=== PATIENT | male | born 1980 | race Caucasian/White ===

== ENCOUNTER 2018-03-25 08:05 | Inpatient (IN) | payer BC ==
[~2018-03-25] VITALS: Ht 185.4 cm; Wt 163.3 kg
[~2018-03-25 08:05] MED LIST: BACTRIM DS TAB1 EACH PO; CLEOCIN HCL150 MG PO; HYDROCODONE-AP1 EAC6 PO; IBUPROFEN 800800 M1 PO; KEFLEX500 MG PO
[2018-03-25 08:11] VITALS: BP 182/104
[2018-03-25 08:44] LABS: ABSOLUTE BASOPHILS 0.1 thou/uL (0.0-0.2); ABSOLUTE EOSINOPHILS 0.3 thou/uL (0.0-0.7); ABSOLUTE LYMPHOCYTES 1.8 thou/uL (0.8-5.3); ABSOLUTE MONOCYTES 0.6 thou/uL (0.0-1.2); ABSOLUTE NEUTROPHILS 4.8 thou/uL (1.6-8.1); EOSINOPHILS 3.8 %; HEMATOCRIT 42.8 % (42.0-52.0); HEMOGLOBIN 14.5 gm/dL (14.0-18.0); LYMPHOCYTES 23.9 %; MCH 28.3 pg (26.0-34.0); MCV 83.3 fL (80.0-100.0); MONOCYTES 7.8 %; MPV 8.9 fl. (7.2-11.1); NUCLEATED RBCS 0 /100WBC; PLATELET COUNT* 316 thou/uL (150-400); POLYS 63.5 %; RBC 5.13 mil/uL (4.50-6.00); RDW-CV 14.3 % (10.5-14.5); WBC 7.6 thou/uL (4.0-11.0)
--- NOTE | 2018-03-25 08:46 | NUR ---
PT GIVEN WARM BLANKET PER REQUEST
[2018-03-25 08:52] LABS: CALCIUM 8.5 mg/dL (8.5-10.1); POTASSIUM 3.5 mmol/L (3.5-5.1)
[2018-03-25 09:02] LABS: ALBUMIN 3.8 g/dL (3.4-5.0); TOTAL BILIRUBIN 0.3 mg/dL (<0.1-1.0); TOTAL PROTEIN 7.9 g/dL (6.4-8.2)
[2018-03-25 10:12] VITALS: BP 133/69
[2018-03-25 10:41] VITALS: BP 151/77
--- NOTE | 2018-03-25 17:02 | NUR ---
PATIENT ADMITTED TO ROOM 103 THIS AM. ALERT AND ORIENTED X 4. PATIENT RATING PAIN A 6/10 BUT HAS BEEN SLEEPING ALMOST ALL OF SHIFT. PATIENT STATES HE WORKS NIGHTS. IV ABX INFUSING ORDERED. BLE'S ELEVATED. PHOTOS TAKEN PER PROTOCOL OF BLE'S. ORIENTED TO CALL LIGHT. CALL LIGHT WITHIN REACH, WILL CONTINUE TO MONITOR.
[2018-03-25 19:45] VITALS: BP 122/77
--- NOTE | 2018-03-25 21:20 | NUR ---
PATIENT MOVED TO HALLWAY DURING TORNADO WARNING PER HOSPITAL POLICY.
--- NOTE | 2018-03-26 04:47 | NUR ---
PATIENT REMAINS ALERT AND ORIENTED X4 THROUGHOUT SHIFT. VITAL SIGNS STABLE ON ROOM AIR. IV PATENT IN THE RIGHT WRIST SALINE LOCKED. TRANSFERS AD MANPREET TO THE RESTROOM. FEET HAVE BEEN ON PILLOWS THROUGHOUT NIGHT. DENIES PAIN OR NAUSEA. MEDICATIONS GIVEN PER ORDERS. HOURLY ROUNDING COMPLETE. TOLERATING REGULAR DIET. RESTING COMFORTABLY THROUGHOUT THE NIGHT. BED IN LOW POSITION. CALL LIGHT WITHIN REACH. NURSING WILL CONTINUE TO MONITOR.
[2018-03-26 04:52] LABS: ABSOLUTE BASOPHILS 0.1 thou/uL (0.0-0.2); ABSOLUTE EOSINOPHILS 0.3 thou/uL (0.0-0.7); ABSOLUTE LYMPHOCYTES 2.3 thou/uL (0.8-5.3); ABSOLUTE MONOCYTES 0.7 thou/uL (0.0-1.2); EOSINOPHILS 4.4 %; HEMATOCRIT 38.9 % (42.0-52.0); HEMOGLOBIN 13.1 gm/dL (14.0-18.0); LYMPHOCYTES 31.3 %; MCH 28.3 pg (26.0-34.0); MCHC 33.7 g/dL (28.0-37.0); MONOCYTES 8.8 %; NUCLEATED RBCS 0 /100WBC; PLATELET COUNT* 288 thou/uL (150-400); POLYS 54.5 %; RBC 4.64 mil/uL (4.50-6.00); RDW-CV 14.1 % (10.5-14.5); WBC 7.4 thou/uL (4.0-11.0)
[2018-03-26 05:13] LABS: CALCIUM 8.2 mg/dL (8.5-10.1); CREATININE 0.9 mg/dL (0.6-1.3)
[2018-03-26 08:00] VITALS: BP 151/78
--- NOTE | 2018-03-26 09:32 | EKG ---
[place] [address] ELECTROCARDIOGRAM REPORT Name: KAISER KERR Room: [address] IN [facility]#: [id number] Admission: 03/25/18 Attend Phys: Nilda Jacobo Discharge: Date of : 84 Report #: [id number] THIS REPORT FOR: //name// [facility] ED Test Date: 2018-03-25 Test Time: 08:36:33 Pat Name: KAISER KERR Department: Room: Gender: Admitting Supervisor: : [id number] Requested By: Heladio Krishnamurthy Order Number: [id number] MD: Jerson Krishna Measurements Intervals Seney Rate: 98 P: 44 ME: 142 QRS: 6 QRSD: 112 T: 26 QT: 369 QTc: 472 Interpretive Statements Sinus rhythm Atrial premature complex Incomplete right bundle branch block Borderline prolonged QT interval No previous ECG available for comparison Electronically Signed On 03-26-2018 9:32:27 CDT by Jerson Krishna [email or web address] <ELECTRONICALLY SIGNED> By: Jerson Krishna MD, [facility] 03/26/18 0932 Jerson Krishna MD, [facility] /EPI
--- NOTE | 2018-03-26 12:15 | NUR ---
WOUND NURSE: PATIENT SEEN TO ADDRESS PERIPHERAL EDEMA IN BILATERAL LOWER EXTREMITIES. PATIENT PRESENTS WITH REDNSS AND WARMTH. THERE ARE NO OPEN WOUND, BUT RANDOM SUPERFICIAL SCRATCHES ON LEGS. PT AND DP PULSES ARE NORMAL BILATERALLY. PATIENT REPORTS PAIN TO TOUCH TO MEDIAL DISTAL LOWER LEGS ABOVE THE MALLEOLUS. GIRTH MEASUREMENTS ARE FOLLOWS: FOOT: 27.5 (RT), 28.5 (LT); ANKLE: 26.0 (RT), 29.5 (LT); 49.5 (RT), 44.5 (LT). THERE IS 2+ PITTING EDEMA IN BLE. APPLIED SINGLE LAYER SIZE F TUBIGRIPS TO PROVIDE APPROX MEDIUM COMPRESSION. PATIENT REPORTS HE WORKS ON HIS FEET ALL DAY AT [employer] AND USUALLY HAS SWELLING ISSUES IN HIS LOWER LEGS BY THE END OF HIS WORK DAY. PATIENT ALSO HAS SOME MILD LIGHT BROWNISH HYPERPIGMENTATION ON DISTAL FEET AND LOWER LEGS. SPOKE WITH DR. PIRES WHO APPROVED VASCULAR CONSULT TO EVALUATE. PATIENT ALSO REPORTING THAT ISSUES WITH CELLULITIS IN HIS LEGS HAS BEEN AN ANNUAL ISSUE OVER THE PAST 5 YEARS. DISCUSSED WITH PATIENT THE IMPORTANCE OF USING MOISTURIZER TO LEGS TO PROTECT SKIN ELASTICITY AND HELP PREVENT FUTURE COMPLICATING FACTORS AND THE POSSIBLE NEED FOR COMPRESSION. PATIENT STATED HE UNDERSTOOD.
--- NOTE | 2018-03-26 12:33 | NUR ---
PT.ALERT AND ORIENTED. STATED HE IS INDEPENDENT. WORKS [employer]. GETS THIS CELLULITIS ABOUT EVERY YEAR AROUND THIS TIME. HIS SIG.OTHER CAN HELP HIM NEEDED. NO HX OF HOME HEALTH OR DME. CM WILL FOLLOW FOR ANY DISCHARGE NEEDS.
[2018-03-26 15:56] VITALS: BP 145/71
--- NOTE | 2018-03-26 17:52 | NUR ---
ALERT AND ORIENTED X4. UP AD MANPREET IN ROOM. IV IS PATENT AND SALINE LOCKED. DENIES NEED FOR PAIN MEDICATION. DENIES NAUSEA. TOLERATING DIET. PATIENT HAS SLEPT MOST OF THE SHIFT. VSS ON ROOM AIR. HOURLY ROUNDS HAVE BEEN MAINTAINED THROUGHOUT SHIFT. CALL LIGHT IS WITHIN REACH. NURSING WILL CONTINUE TO MONITOR.
[2018-03-26 20:05] VITALS: BP 138/78
[2018-03-27 04:23] LABS: ABSOLUTE BASOPHILS 0.1 thou/uL (0.0-0.2); ABSOLUTE EOSINOPHILS 0.4 thou/uL (0.0-0.7); ABSOLUTE LYMPHOCYTES 2.3 thou/uL (0.8-5.3); ABSOLUTE MONOCYTES 0.8 thou/uL (0.0-1.2); ABSOLUTE NEUTROPHILS 5.9 thou/uL (1.6-8.1); BASOPHILS 0.8 %; EOSINOPHILS 4.2 %; HEMATOCRIT 41.1 % (42.0-52.0); HEMOGLOBIN 13.6 gm/dL (14.0-18.0); LYMPHOCYTES 24.6 %; MCHC 33.2 g/dL (28.0-37.0); MCV 84.3 fL (80.0-100.0); MONOCYTES 8.4 %; NUCLEATED RBCS 0 /100WBC; PLATELET COUNT* 277 thou/uL (150-400); RBC 4.87 mil/uL (4.50-6.00); RDW-CV 13.9 % (10.5-14.5); WBC 9.5 thou/uL (4.0-11.0)
[2018-03-27 04:39] LABS: CALCIUM 8.7 mg/dL (8.5-10.1); CREATININE 0.9 mg/dL (0.6-1.3); POTASSIUM 4.3 mmol/L (3.5-5.1)
--- NOTE | 2018-03-27 05:19 | NUR ---
PATIENT ALERT AND ORIENTED. VITALS STABLE. 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 LEGS ELEVATED ON PILLOW. NO EDEMA OR REDNESS OBSERVED. SLIGHTLY WARM TO TOUCH. UP INDEPENDENTLY. DENIES PAIN. SLEPT COMFORTABLY. HOURLY ROUNDS. NURSING WILL CONTINUE TO MONITOR.
[2018-03-27 08:23] VITALS: BP 140/75
[2018-03-27 09:44] VITALS: BP 140/75
[2018-03-27] MEDS ORDERED: LISINOPRIL5 MG PO (09:48)
[2018-03-27] MEDS ORDERED: NICOTINE TRANSD21 M1 TRANSDERM (09:49)
[2018-03-27] MEDS ORDERED: TYLENOL325 MG PO (09:50)
[2018-03-27] MEDS ORDERED: PERCOCET 10-321 EAC1 PO (09:54)
--- NOTE | 2018-03-27 13:46 | NUR ---
PT.BEING DISCHARGED TODAY. DOES NOT HAVE A PCP TO FOLLOW UP WITH . GAVE HIM A LIST OF [facility]S OWNED PRACTICES. ENCOURAGED HIM TO MAKE A FOLLOW UP APPT. WITH ONE OF THE 'S ON THE LIST.
--- NOTE | 2018-03-27 14:20 | NUR ---
ASSUMED CARE OF APTIENT AFTER MORNING REPORT. ALERT AND ORIENTED X4. ASSESSMENT COMPLETED AND CHARTED. VSS ON ROOM AIR. PATIENT HAS HAD NO COMPLAINTS OF PAIN, NAUSEA OR SOA THIS SHIFT. ANTIBIOTICS INFUSED ORDERED. PATIENT DISCHARGED AT 1418, ALL PERSONAL BELONGINGS, DISCHARGE INFORMATION AND PRESCRIPTIONS SENT WITH PATIENT UPON DISCHARGE.
== END 2018-03-27 14:18 | disposition home or self-care (01) | DRG 603 ==
LOC: M.ERS 08:05 → M.TBA-ER 09:26 → M.ORTHSURG 09:26
PROVIDERS: Emergency Medicine; ADMIT Internal Medicine
DX: L03.116 Cellulitis of left lower limb (principal); F17.210 Nicotine dependence, cigarettes, uncomplicated; E66.01 Morbid (severe) obesity due to excess calories; L03.115 Cellulitis of right lower limb; I16.0 Hypertensive urgency; Z79.2 Long term (current) use of antibiotics; Z68.42 Body mass index [BMI] 45.0-49.9, adult; Z79.899 Other long term (current) drug therapy